=== PATIENT | male | born 1965 | race Hispanic/Latino ===

== ENCOUNTER 2017-11-05 10:58 | Observation (INO) | payer OTHER ==
[2017-11-05] MEDS ORDERED: Folic Acid 1 MG, Thiamine 100 MG, Multivitamin (MVI) 10 ML in Dextrose 5% In Water 1,00... IV SCH (12:00)
[2017-11-05 12:01] LABS: BASO % 0.8 % (0.0-2.0); EOS # 0.1 K/uL (0.0-0.7); EOS % 0.9 % (0.0-4.0); LYMPH # 1.8 K/uL (1.0-4.3); LYMPH % 29.9 % (20.0-40.0); MEAN CELL VOLUME 85.8 fL (80.0-94.0); MEAN PLATELET VOLUME 7.9 fL (7.2-11.7); MONO # 0.4 K/uL (0.0-0.8); MONO % 6.9 % (0.0-10.0); NEUT # 3.7 K/uL (1.8-7.0); NEUT % 61.5 % (50.0-75.0); NRBC % 0.1 % (0.0-2.0)
[2017-11-05] MEDS ORDERED: Folic Acid 1 MG, Thiamine 100 MG, Multivitamin (MVI) 10 ML in Sodium Chloride 0.9% 1,00... IV SCH (12:15)
[2017-11-05 12:16] LABS: ALB/GLOB RATIO 1.4 (1.0-2.1); ALBUMIN 4.3 g/dL (3.5-5.0); ALT/SGPT 85 U/L (21-72); AST/SGOT 123 U/L (17-59); BLOOD UREA NITROGEN 14 mg/dL (9-20); CALCIUM 8.7 mg/dl (8.6-10.4); GFR AFRICAN-AMERICAN > 60; GFR NON-AFRICAN AMERICAN > 60
[2017-11-05 12:20] LABS: SQUAMOUS EPITHIAL < 1 /hpf (0-5); URINE BILIRUBIN NEGATIVE (NEGATIVE); URINE BLOOD NEGATIVE (NEGATIVE); URINE CLARITY Clear (Clear); URINE COLOR Yellow (YELLOW); URINE GLUCOSE (UA) NORMAL (Normal); URINE LEUKOCYTE ESTERASE NEG Leu/uL (Negative); URINE PROTEIN NEGATIVE (NEGATIVE); URINE UROBILINOGEN NORMAL mg/dL (0.2-1.0)
--- NOTE | 2017-11-05 12:26 | C.PDOC ---
History Of Present Illness 52 y/o male with history of High cholesterol presents to ED with c/o trouble sleeping, decreased appetite associated with dizziness "things spinning in head " for 3 days. Patient states he has been drinking ETOH daily for the past 3 weeks and today decided to check blood pressure with 's machine, found blood pressure to be elevated and came to ED for evaluation. Patient denies chest pain, sob, nausea, vomiting or any other complaints at this time. pt's last drink yesterday. Time Seen by Provider: 11/05/17 11:22 Chief Complaint (Nursing): Dizziness/Lightheaded History Per: Patient History/Exam Limitations: no limitations Onset/Duration Of Symptoms: Days Current Symptoms Are (Timing): Still Present Past Medical History Reviewed: Historical Data, Nursing Documentation, Vital Signs Vital Signs: Last Vital Signs Temp 98.3 F 11/06/17 13:26 Pulse 80 11/06/17 13:26 Resp 18 11/06/17 13:26 BP 130/78 11/06/17 13:26 Pulse Ox 98 11/06/17 14:06 - Medical History PMH: Hypercholesterolemia Surgical History: Appendectomy Family History: States: No Known Family Hx - Social History Hx Alcohol Use: Yes Hx Substance Use: No - Immunization History Hx Tetanus Toxoid Vaccination: No Hx Influenza Vaccination: Yes Hx Pneumococcal Vaccination: No Review Of Systems Constitutional: Negative for: Fever, Chills Cardiovascular: Negative for: Chest Pain Respiratory: Negative for: Shortness of Breath Gastrointestinal: Negative for: Nausea, Vomiting Skin: Negative for: Rash Neurological: Positive for: Dizziness. Negative for: Headache Physical Exam - Physical Exam Appears: Non-toxic, Other (Mildly anxious) Skin: Warm, Dry, No Rash Head: Atraumatic, Normacephalic Eye(s): bilateral: PERRL, EOMI Oral Mucosa: Dry Neck: Normal ROM, Supple Cardiovascular: Rhythm Regular, Other (Tachycardic) Respiratory: Normal Breath Sounds, No Rales, No Rhonchi, No Wheezing Gastrointestinal/Abdominal: Soft, No Tenderness, No Guarding, No Rebound Extremity: Capillary Refill (<2 seconds), No Deformity, Other (Tremulous hands) Pulses: Left Radial: Normal, Right Radial: Normal Neurological/Psych: Oriented x3, Normal Speech, Normal Cognition ED Course And Treatment - Laboratory Results Result Diagrams: 11/06/17 06:18 11/06/17 06:18 ECG: Interpreted By Me, Viewed By Me ECG Rhythm: Sinus Rhythm Rate From EC (BPM) O2 Sat by Pulse Oximetry: 98 (RA) Medical Decision Making Medical Decision Making: Plan: ECG, drug screen ordered. Ativan and IV fluids administered [address] Graham, pt to be admitted for etoh withdrawal 128 pm pt agrees to admission; will give another dose of ativan in ed. Disposition Discussed With .: Chuck Graham Jr. Doctor Will See Patient In The: Hospital - Disposition Disposition: HOSPITALIZED Disposition Time: 13:29 Condition: GOOD - Clinical Impression Clinical Impression: Alcohol withdrawal - PA / BACON DE RINDER / Resident Statement MD/DO has reviewed & agrees with the documentation as recorded. - Scribe Statement The provider has reviewed the documentation as recorded by the Scribrhiannon Stewart All medical record entries made by the Reginaldibrhiannon were at my direction and personally dictated by me. I have reviewed the chart and agree that the record accurately reflects my personal performance of the history, physical exam, medical decision making, and the department course for this patient. I have also personally directed, reviewed, and agree with the discharge instructions and disposition.
[2017-11-05 12:46] LABS: BENZODIAZEPINES, UR NEGATIVE (NEGATIVE); OPIATES, UR NEGATIVE (NEGATIVE); PHENCYCLIDINE, UR NEGATIVE (NEGATIVE)
[2017-11-05 13:10] LABS: BARBITURATES, UR POSITIVE (NEGATIVE)
--- NOTE | 2017-11-05 16:24 | CP.PCM.HP ---
History of Present Illness - History of Present Illness History of Present Illness: HPI: Patient is a 52 year old male with past medical history of BPH, HLD, and alcohol use disorder who presents to the ED because he "wants to stop drinking" . Patient says over the past three weeks he has been very stressed out about moving to [place] for his job. Due to this stress, patient says he started drinking heavily, estimating 1 pint of henessey, pint of vodka with a few beers, or a 1.5 L bottle of wine daily. Patient says he has had problems with alcohol in the past stating that when his mother last year he started drinking heavily for a few months but was able to stop on his own. Patient says the past 3 days he has not been sleeping well either, waking up frequently in the middle of the night. Patient says he decided to come today because yesterday he started feeling dizzy/lightheaded, weak, nauseous, and having non- bloody diarrhea, then today he checked his BP and found it to be 190/110. Patient says his last drink was yesterday morning at 8 am. He denies fever, headache, chest pain, SOB, palpitations, cough, abdominal pain, vomiting, constipation, changes in urination, and lower extremity pain/swelling. PMH: BPH, HLD, and alcohol use disorder Meds: Simvastatin 20 mg daily Allergies: denies PSH: appendectomy FH: Grandmother with DM SH: former smoker of 35 years (quit in December 2016, 30 cig/day), denies drug use, alcohol use as described above Present on Admission - Present on Admission Any Indicators Present on Admission: No Review of Systems - Review of Systems All systems: reviewed and no additional remarkable complaints except (as per HPI ) Past Patient History - Past Social History Smoking Status: Former Smoker - CARDIAC Hx Hypercholesterolemia: Yes - PSYCHIATRIC Hx Substance Use: No - SURGICAL HISTORY Hx Appendectomy: Yes - ANESTHESIA Hx Anesthesia: Yes Hx Anesthesia Reactions: No Meds Allergies/Adverse Reactions: Allergies Allergy/AdvReac Type Severity Reaction Status Date / Time No Known Allergies Allergy Unverified 11/05/17 11:18 Physical Exam - Constitutional Appears: Non-toxic, No Acute Distress - Head Exam Head Exam: ATRAUMATIC, NORMAL INSPECTION, NORMOCEPHALIC - Eye Exam Eye Exam: EOMI, Normal appearance, PERRL - ENT Exam ENT Exam: Mucous Membranes Moist - Neck Exam Neck exam: Positive for: Normal Inspection - Respiratory Exam Respiratory Exam: Clear to Auscultation Bilateral, NORMAL BREATHING PATTERN. absent: Accessory Muscle Use, Rales, Rhonchi, Wheezes, Respiratory Distress - Cardiovascular Exam Cardiovascular Exam: Tachycardia, REGULAR RHYTHM, +S1, +S2. absent: Diastolic murmur, Gallop, Rubs, Systolic Murmur - GI/Abdominal Exam GI & Abdominal Exam: Normal Bowel Sounds, Soft. absent: Distended, Tenderness - Extremities Exam Extremities exam: Positive for: normal inspection. Negative for: calf tenderness, pedal edema - Back Exam Back exam: NORMAL INSPECTION - Neurological Exam Neurological exam: Alert, Oriented x3 - Psychiatric Exam Psychiatric exam: Depressed, Normal Affect - Skin Skin Exam: Dry, Intact, Normal Color, Warm Results - Vital Signs Recent Vital Signs: Last Vital Signs Temp 99.1 F 11/05/17 15:20 Pulse 92 H 11/05/17 15:20 Resp 10 L 11/05/17 15:20 BP 154/85 H 11/05/17 15:20 Pulse Ox 98 11/05/17 15:20 - Labs Result Diagrams: 11/05/17 11:56 11/05/17 11:56 Labs: Laboratory Results - last 24 hr 11/05/17 11/05/17 11/05/17 11:10 11:56 11:56 WBC 6.0 RBC 5.00 Hgb 15.0 Hct 42.9 MCV 85.8 MCH 30.0 MCHC 35.0 RDW 14.0 Plt Count 207 MPV 7.9 Neut % (Auto) 61.5 Lymph % (Auto) 29.9 Webb % (Auto) 6.9 Eos % (Auto) 0.9 Baso % (Auto) 0.8 Neut # (Auto) 3.7 Lymph # (Auto) 1.8 Webb # (Auto) 0.4 Eos # (Auto) 0.1 Baso # (Auto) 0.0 Sodium 136 Potassium 4.4 Chloride 93 L Carbon Dioxide 24 Anion Gap 23 H BUN 14 Creatinine 1.0 Est GFR ( Amer) > 60 Est GFR (Non-Af Amer) > 60 POC Glucose (mg/dL) 84 Random Glucose 82 Calcium 8.7 Phosphorus 3.9 Magnesium 1.8 Total Bilirubin 1.0 AST 123 H ALT 85 H Alkaline Phosphatase 97 Total Protein 7.4 Albumin 4.3 Globulin 3.1 Albumin/Globulin Ratio 1.4 Urine Color Urine Clarity Urine pH Ur Specific [place] Urine Protein Urine Glucose (UA) Urine Ketones Urine Blood Urine Nitrate Urine Bilirubin Urine Urobilinogen Ur Leukocyte Esterase Urine WBC (Auto) Ur Squamous Epith Cells Urine Opiates Screen Urine Methadone Screen Ur Barbiturates Screen Ur Phencyclidine Scrn Ur Amphetamines Screen U Benzodiazepines Scrn U Oth Cocaine Metabols U Cannabinoids Screen Alcohol, Quantitative 48 H 11/05/17 11/05/17 12:11 12:11 WBC RBC Hgb Hct MCV MCH MCHC RDW Plt Count MPV Neut % (Auto) Lymph % (Auto) Webb % (Auto) Eos % (Auto) Baso % (Auto) Neut # (Auto) Lymph # (Auto) Webb # (Auto) Eos # (Auto) Baso # (Auto) Sodium Potassium Chloride Carbon Dioxide Anion Gap BUN Creatinine Est GFR ( Amer) Est GFR (Non-Af Amer) POC Glucose (mg/dL) Random Glucose Calcium Phosphorus Magnesium Total Bilirubin AST ALT Alkaline Phosphatase Total Protein Albumin Globulin Albumin/Globulin Ratio Urine Color Yellow Urine Clarity Clear Urine pH 6.0 Ur Specific [place] 1.011 Urine Protein Negative Urine Glucose (UA) Normal Urine Ketones Negative Urine Blood Negative Urine Nitrate Negative Urine Bilirubin Negative Urine Urobilinogen Normal Ur Leukocyte Esterase Neg Urine WBC (Auto) < 1 Ur Squamous Epith Cells < 1 Urine Opiates Screen Negative Urine Methadone Screen Negative Ur Barbiturates Screen Positive H Ur Phencyclidine Scrn Negative Ur Amphetamines Screen Negative U Benzodiazepines Scrn Negative U Oth Cocaine Metabols Negative U Cannabinoids Screen Negative Alcohol, Quantitative Assessment & Plan - Assessment and Plan (Free Text) Plan: Alcohol withdrawal * Psych (Dr. Juarez) consulted, help appreciated * Given ativan in the ED * BP currently controlled, tachy @100 bpm, no tremors * EKG: normal sinus rhythm, normal EKG * Alcohol level 48 * UDS: +barbiturates (will ask patient about any recent sleeping medication use ) * Ativan 1 mg PRN * Librium 50 mg Q8H (unless sedated, hold dose) * Atenolol 25 mg Q12H PRN HTN History of HLD * On Simvastatin 20 mg PO HS at home - will give crestor 5 mg HS Prophylaxis * GI ppx not indicated * DVT: SCDs for a VTE risk score of 1
[2017-11-06 06:30] LABS: BASO % 0.3 % (0.0-2.0); EOS # 0.1 K/uL (0.0-0.7); EOS % 2.7 % (0.0-4.0); LYMPH # 1.5 K/uL (1.0-4.3); LYMPH % 32.4 % (20.0-40.0); MEAN CELL VOLUME 85.7 fL (80.0-94.0); MEAN CORPUSCULAR HEMOGLOBIN 29.8 pg (27.0-31.0); MEAN CORPUSCULAR HGB CONC 34.8 g/dL (33.0-37.0); MONO # 0.3 K/uL (0.0-0.8); NEUT # 2.8 K/uL (1.8-7.0); NEUT % 58.6 % (50.0-75.0); NRBC % 0.2 % (0.0-2.0); RBC 4.36 Mil/uL (4.40-5.90); RED CELL DISTRIBUTION WIDTH 13.6 % (11.5-14.5); WHITE BLOOD COUNT 4.7 K/uL (4.8-10.8)
[2017-11-06 06:53] LABS: ALB/GLOB RATIO 1.3 (1.0-2.1); ALBUMIN 3.3 g/dL (3.5-5.0); ALT/SGPT 64 U/L (21-72); AST/SGOT 82 U/L (17-59); BLOOD UREA NITROGEN 12 mg/dL (9-20); CALCIUM 8.5 mg/dl (8.6-10.4); GFR AFRICAN-AMERICAN > 60; GFR NON-AFRICAN AMERICAN > 60
[2017-11-06 10:07] VITALS: RESP 18
--- NOTE | 2017-11-06 12:18 | PCM.PSYCH ---
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 He was brought in with dizziness and CP but medically cleared. He has been drinking either 1 pint of liquor or 2 bottles of wine. He denies drug use but smokes cigarettes when he drinks. No DTs or seizures. No proper treatment but he agrees to see his PCP and go to AA perhaps. He says he cannot do rehab or detox bc of work, but he will continue meds (detox) outside - risks involved discussed, incl. seizures, and he understood) He has some anxiety but no other psych issues Medically, he has high cholesterl and gallbladder stones Family psych is positive for his father being an "alcoholic" in the past Current Medications: Active Medications Generic Name Dose Route Start Last Admin Trade Name Freq PRN Reason Stop Dose Admin Atenolol 25 mg 11/06/17 10:00 11/06/17 09:59 Tenormin PO 25 mg DAILY CARRIE Administration Chlordiazepoxide 25 mg 11/06/17 00:00 11/06/17 05:37 Librium PO 11/09/17 23:59 25 mg Q6H CARRIE Administration Taper Clonidine HCl 0.1 mg 11/05/17 17:31 11/06/17 09:59 Catapres PO 0.1 mg TID PRN Administration Systolic Blood Pressure Lorazepam 1 mg 11/05/17 15:07 Ativan IVP Q6H PRN Symptoms of alcohol withdrawl Ondansetron HCl 4 mg 11/05/17 14:02 Zofran Inj IVP Q6 PRN Nausea/Vomiting Rosuvastatin Calcium 5 mg 11/05/17 22:00 11/05/17 23:07 Crestor PO 5 mg HS CARRIE Administration Past Psychiatric History - Past Psychiatric History Previous Treatment History: None Pertinent Medical Hx (Current Medical&Sleep Prob, Allergies): Allergies Allergy/AdvReac Type Severity Reaction Status Date / Time No Known Allergies Allergy Unverified 11/05/17 11:18 Simvastatin 20 mg PO DAILY 11/05/17 Review of Systems - Neurological Neurological: Tremor - Psychiatric Psychiatric: Abnormal Sleep Pattern, Anxiety. absent: Hallucinations, Homicidal Ideation, Hopelessness, Paranoia, Suicidal Ideation Mental Status Examination - Personal Presentation Personal Presentation: Looks stated age - Affect Affect: Broad - Motor Activity Motor Activity: Calm - Reliability in Providing Information Reliability in Providing Information: Good - Speech Speech: Organized - Mood Mood: Anxious - Formal Thought Process Formal Thought Process: No Impairment - Cognitive Functions Orientation: Person, Place, Situation, Time Sensorium: Alert Attention/Concentration: Attentive Estimate of Intelligence: Above Average Judgement: Intact, as evidence by: Insight regarding need for hospitalization Memory: Recent intact, as evidence by: Ability to recall events of the day, Remote intact, as evidenced by: Abilit to recall sig. life events - Risk Risk: Seizure, Withdrawal, Diminished functioning - Strength & Assets Inventory Strength & Assets Inventory: Cooperative - Limitations Limitations: Living alone DSM 5 DX - DSM 5 DSM 5 Diagnosis: Alcohol withdrawal Alcohol use d/o - severe - Recommended/Plan of Treatment Treatment Recommendations and Plan of Treatment: Librium detox explained Trazodone bc of insomnia Consider gabapentin Refer to IOP and A Consider naltrexone after d/c Support, psychoed and SD provided Psych will sign off 33 min
[2017-11-06 13:27] VITALS: BP 130/78; PULSE 80; TEMP 98.3
[2017-11-06 14:06] VITALS: O2SAT 98
--- NOTE | 2017-11-06 22:15 | CP.PCM.DIS ---
Provider - Provider Date of Admission: 11/05/17 13:31 Attending physician: Chuck Graham Jr, MD Primary care physician: none Consults: Psych: Larry Time Spent in preparation of Discharge (in minutes): 45 Hospital Course - Lab Results Lab Results: Micro Results 11/05/17 15:31 Nose MRSA Culture (Admit) - Final MRSA NOT DETECTED Most Recent Lab Values WBC 4.7 K/uL (4.8-10.8) L 11/06/17 06:18 RBC 4.36 Mil/uL (4.40-5.90) L 11/06/17 06:18 Hgb 13.0 g/dL (12.0-18.0) D 11/06/17 06:18 Hct 37.4 % (35.0-51.0) 11/06/17 06:18 MCV 85.7 fL (80.0-94.0) 11/06/17 06:18 MCH 29.8 pg (27.0-31.0) 11/06/17 06:18 MCHC 34.8 g/dL (33.0-37.0) 11/06/17 06:18 RDW 13.6 % (11.5-14.5) 11/06/17 06:18 Plt Count 165 K/uL (130-400) 11/06/17 06:18 MPV 8.0 fL (7.2-11.7) 11/06/17 06:18 Neut % (Auto) 58.6 % (50.0-75.0) 11/06/17 06:18 Lymph % (Auto) 32.4 % (20.0-40.0) 11/06/17 06:18 [place] % (Auto) 6.0 % (0.0-10.0) 11/06/17 06:18 Eos % (Auto) 2.7 % (0.0-4.0) 11/06/17 06:18 Baso % (Auto) 0.3 % (0.0-2.0) 11/06/17 06:18 Neut # (Auto) 2.8 K/uL (1.8-7.0) 11/06/17 06:18 Lymph # (Auto) 1.5 K/uL (1.0-4.3) 11/06/17 06:18 Thayer # (Auto) 0.3 K/uL (0.0-0.8) 11/06/17 06:18 Eos # (Auto) 0.1 K/uL (0.0-0.7) 11/06/17 06:18 Baso # (Auto) 0.0 K/uL (0.0-0.2) 11/06/17 06:18 Sodium 138 mmol/L (132-148) 11/06/17 06:18 Potassium 3.9 mmol/L (3.6-5.2) 11/06/17 06:18 Chloride 100 mmol/L (98-107) 11/06/17 06:18 Carbon Dioxide 27 mmol/L (22-30) 11/06/17 06:18 Anion Gap 15 (10-20) 11/06/17 06:18 BUN 12 mg/dL (9-20) 11/06/17 06:18 Creatinine 1.0 mg/dL (0.8-1.5) 11/06/17 06:18 Est GFR ( Amer) > 60 11/06/17 06:18 Est GFR (Non-Af Amer) > 60 11/06/17 06:18 POC Glucose (mg/dL) 84 mg/dL (65-110) 11/05/17 11:10 Random Glucose 85 mg/dL (75-110) 11/06/17 06:18 Calcium 8.5 mg/dl (8.6-10.4) L 11/06/17 06:18 Phosphorus 3.9 mg/dL (2.5-4.5) 11/05/17 11:56 Magnesium 1.8 mg/dL (1.6-2.3) 11/05/17 11:56 Total Bilirubin 1.4 mg/dL (0.2-1.3) H 11/06/17 06:18 AST 82 U/L (17-59) H D 11/06/17 06:18 ALT 64 U/L (21-72) 11/06/17 06:18 Alkaline Phosphatase 81 U/L (38-126) 11/06/17 06:18 Total Protein 6.0 g/dL (6.3-8.3) L 11/06/17 06:18 Albumin 3.3 g/dL (3.5-5.0) L D 11/06/17 06:18 Globulin 2.7 gm/dL (2.2-3.9) 11/06/17 06:18 Albumin/Globulin Ratio 1.3 (1.0-2.1) 11/06/17 06:18 Urine Color Yellow (YELLOW) 11/05/17 12:11 Urine Clarity Clear (Clear) 11/05/17 12:11 Urine pH 6.0 (5.0-8.0) 11/05/17 12:11 Ur Specific [place] 1.011 (1.003-1.030) 11/05/17 12:11 Urine Protein Negative mg/dL (NEGATIVE) 11/05/17 12:11 Urine Glucose (UA) Normal mg/dL (Normal) 11/05/17 12:11 Urine Ketones Negative mg/dL (NEGATIVE) 11/05/17 12:11 Urine Blood Negative (NEGATIVE) 11/05/17 12:11 Urine Nitrate Negative (NEGATIVE) 11/05/17 12:11 Urine Bilirubin Negative (NEGATIVE) 11/05/17 12:11 Urine Urobilinogen Normal mg/dL (0.2-1.0) 11/05/17 12:11 Ur Leukocyte Esterase Neg Prerna/uL (Negative) 11/05/17 12:11 Urine WBC (Auto) < 1 /hpf (0-5) 11/05/17 12:11 Ur Squamous Epith Cells < 1 /hpf (0-5) 11/05/17 12:11 Urine Opiates Screen Negative (NEGATIVE) 11/05/17 12:11 Urine Methadone Screen Negative (NEGATIVE) 11/05/17 12:11 Ur Barbiturates Screen Positive (NEGATIVE) H 11/05/17 12:11 Ur Phencyclidine Scrn Negative (NEGATIVE) 11/05/17 12:11 Ur Amphetamines Screen Negative (NEGATIVE) 11/05/17 12:11 U Benzodiazepines Scrn Negative (NEGATIVE) 11/05/17 12:11 U Oth Cocaine Metabols Negative (NEGATIVE) 11/05/17 12:11 U Cannabinoids Screen Negative (NEGATIVE) 11/05/17 12:11 Alcohol, Quantitative 48 mg/dl (0-10) H 11/05/17 11:56 - Hospital Course Hospital Course: Patient is a 52 year old male with past medical history of BPH, HLD, and alcohol use disorder who presents to the ED because he "wants to stop drinking" . Patient says over the past three weeks he has been very stressed out about moving to [place] for his job. Due to this stress, patient says he started drinking heavily, estimating 1 pint of henessey, pint of vodka with a few beers, or a 1.5 L bottle of wine daily. Patient says he has had problems with alcohol in the past stating that when his mother last year he started drinking heavily for a few months but was able to stop on his own. Patient says the past 3 days he has not been sleeping well either, waking up frequently in the middle of the night. Patient says he decided to come today because yesterday he started feeling dizzy/lightheaded, weak, nauseous, and having non- bloody diarrhea, then today he checked his BP and found it to be 190/110. Patient says his last drink was yesterday morning at 8 am. He denies fever, headache, chest pain, SOB, palpitations, cough, abdominal pain, vomiting, constipation, changes in urination, and lower extremity pain/swelling. was feeling better the next day with no signs of withdrawal. Was seen by psych. Counselled on drinking cessation. Stable for discharge Discharge Exam - Head Exam Head Exam: ATRAUMATIC, NORMAL INSPECTION, NORMOCEPHALIC - Eye Exam Eye Exam: EOMI, Normal appearance, PERRL Pupil Exam: NORMAL ACCOMODATION, PERRL - Respiratory Exam Respiratory Exam: Clear to PA & Lateral, UNREMARKABLE - Cardiovascular Exam Cardiovascular Exam: REGULAR RHYTHM - GI/Abdominal Exam GI & Abdominal Exam: Normal Bowel Sounds - Neurological Exam Neurological exam: Alert, CN II-XII Intact, Normal Gait, Oriented x3, Reflexes Normal - Psychiatric Exam Psychiatric exam: Normal Affect, Normal Mood - Skin Skin Exam: Dry, Intact, Normal Color, Warm Discharge Plan - Discharge Medications Prescriptions: chlordiazePOXIDE [Librium] 25 mg PO DAILY #8 cap traZODone [Desyrel] 50 mg PO HS #30 tab - Follow Up Plan Condition: GOOD Disposition: HOME/ ROUTINE
--- NOTE | 2017-11-09 23:03 | CARD ---
APPROVED REPORT EKG Measurement Heart [id number] [place] [id number] <Conclusion> Normal sinus rhythm Normal ECG
== END 2017-11-06 13:30 | disposition home or self-care (01) ==
LOC: C.ER 10:58 → C.9E 13:31 → C.9I 14:37
PROVIDERS: ADMIT Internal Medicine; ATTEND Internal Medicine
DX: F10.239 Alcohol dependence with withdrawal, unspecified (principal); Y90.2 Blood alcohol level of 40-59 mg/100 ml; E78.00 Pure hypercholesterolemia, unspecified; N40.0 Benign prostatic hyperplasia without lower urinary tract symptoms; Z87.891 Personal history of nicotine dependence
CPT/HCPCS: 80053; 80320; 80324; 80345; 80346; 80349; 80353; 80358; 80361; 81001; 82948; 83735; 83992; 84100; 85025; 87081; 96374; 99285; G0378; J2060; J3411; J7040